=== PATIENT | female | born 1940 | race Caucasian/White ===

== ENCOUNTER 2019-07-28 06:56 | Day surgery (SDC) | payer MEDICARE, BC ==
[~2019-07-28 06:56] MED LIST: Dextrose 5%-0.45% NaCl 1,000 ML IV SCH; Midazolam 1 MG/ML 2 ML SDV ONE; fentaNYL 100 MCG/2 ML SDV ONE
[2019-07-28] MEDS ORDERED: fentaNYL 100 MCG/2 ML SDV IV ONE ×3 (06:57→08:09)
[2019-07-28] MEDS ORDERED: Midazolam 1 MG/ML 2 ML SDV IV ONE ×3 (06:57→08:11)
[2019-07-28] MEDS ORDERED: Sodium Chloride 0.9% 10 ML Syringe FLUSH PRN (08:00)
--- NOTE | 2019-07-28 10:14 | OR ---
DATE: 07/28/2019 PROCEDURES: Esophagogastroduodenoscopy and multiple pinch biopsies. INSTRUMENT USED: GIF-HQ190 Olympus video panendoscope. PREMEDICATIONS: No oral or topical anesthesia used. Fentanyl 100 mcg intravenous, Versed 1.5 mg intravenous, nasal O2 cannula. The procedure was done under pulse oximetry, BP recording, and customer assistance associate. INDICATION: The patient with persistent heartburn and chronic diarrhea, unexplained and not responsive to medical measures. Esophagogastroduodenoscopy is performed for detection of any active erosive lesions, Pereira esophagus and/or malignancy also under consideration, H pylori status to be determined, small bowel biopsies to be obtained for celiac disease, endoscopic hemostasis therapy if needed. PROCEDURE IN DETAIL: The scope was passed with ease. Adequate visualization of the esophagus was made from proximal to distal areas. No upper esophageal lesions identified. No distal esophageal stricture. No uphill or downhill esophageal varices. No Lucía-Camp tear. No evidence of erosive esophagitis by Clay criteria. No esophageal polyp or tumor mass identified. Z-line was seen around 39 cm distal to the oral verge, configuration consistent with grade 1 by ZAP classification. No esophageal polyp or tumor mass identified. No proximal gastric varices noted. Gastric fundus examination by retroflexion showed no polypoid lesions. No gastric ulcer, malignant mass, or vascular ectasia identified. Multiple pinch biopsies taken from the gastric antrum and proximal body and sent for PyloriTek test for H pylori and histopathology. Duodenal bulb showed no ulcer. Visualized second part of the duodenum was unremarkable. Multiple pinch biopsies, 4 in number, were taken from different areas of the second part of the duodenum, and tissues were also obtained from the duodenal bulb at 9 and 12 o'clock positions and sent for any histopathologic evidence of celiac disease. No bleeding was noted from any of the visualized areas at the completion of examination. Photographs were taken of the duodenal bulb, gastric antrum, fundus, and distal esophagus. IMPRESSION: Normal study. The patient tolerated the procedure well. [facility] /[id number]
--- NOTE | 2019-07-28 11:14 | LETTER ---
07/28/2019 Randi Granado NP [address] [address] RE: GRANT YARELY Palmer : 1940 Dear Ms. Granado: Ms. Yarely Maddox had esophagogastroduodenoscopy done this morning and she tolerated the procedure well. I herewith send a copy of the endoscopy note and photographs for your review. Thank you. Sincerely, [facility] /[id number]
== END 2019-07-28 10:20 | disposition home or self-care (01) ==
LOC: DL.ENDO 06:56
PROVIDERS: ATTEND Internal Medicine Gastroenterology
DX: R12 Heartburn (principal); K52.9 Noninfective gastroenteritis and colitis, unspecified; B96.81 Helicobacter pylori [H. pylori] as the cause of diseases classified elsewhere; I10 Essential (primary) hypertension; M19.90 Unspecified osteoarthritis, unspecified site; Z88.5 Allergy status to narcotic agent; Z88.1 Allergy status to other antibiotic agents; Z88.8 Allergy status to other drugs, medicaments and biological substances
CPT/HCPCS: 43239; 87077; J2250; J3010; J7042

== ENCOUNTER 2019-12-07 06:54 | Day surgery (SDC) | payer MEDICARE, BC ==
[~2019-12-07 06:54] MED LIST changes: +Sodium Chloride 0.9% 10 ML Syringe FLUSH PRN
[2019-12-07] MEDS ORDERED: Midazolam 1 MG/ML 2 ML SDV IV ONE ×7 (06:55→08:53)
[2019-12-07] MEDS ORDERED: fentaNYL 100 MCG/2 ML SDV IV ONE ×4 (06:55→08:55)
--- NOTE | 2019-12-07 15:31 | OR ---
DATE: 12/07/2019 PROCEDURES: Total colonoscopy and cold snare polypectomy. INSTRUMENT USED: PCF-H190DL Olympus video colonoscope. PREMEDICATIONS: Fentanyl 125 mcg intravenous, Versed 4 mg intravenous. Nasal O2 cannula. The procedure was done under pulse oximetry, BP recording, and satellite project site monitor. INDICATION: The patient with Hemoccult positive stools. Colonoscopic examination is done for detection of any polypoid lesions and removal, endoscopic hemostasis therapy if needed. DESCRIPTION OF PROCEDURE: Initial rectal exam was unremarkable. Rigid anoscopy was normal. The colonoscope was passed with ease. Numerous scattered diverticula were noted in the distal left colon along with significant deformity. The passage of the scope was technically difficult due to the presence of adhesions and numerous distal left colonic diverticula with deformity. In the proximal sigmoid colon, 5 mm sized benign-appearing polyp was noted, photograph was taken, cold snare polypectomy was done, the tissue was retrieved and sent for histopathology. The scope was passed up to the cecal area, photographs were taken. The examination was compromised due to the presence of large amount of fecal material, especially in the right colon that could not be aspirated clear. [place] scale 1 in the right colon, 2 in transverse and left colon, total score 5. No vascular ectasia. No large isolated ulcerations seen. No evidence of diffuse inflammatory bowel disease in the form of friability, contact bleeding, or ulcerations. Probing the proximal sides of folds and flexures using adequate distention and clearing of the stool material, withdrawal of the scope was made. Cecum to rectum time more than 6 minutes. No bleeding was noted from any of the visualized areas at the completion of examination. IMPRESSION: 1. Sigmoid colonic polyp. 2. Diverticulosis. The patient tolerated the procedure well. [facility] /[id number]
--- NOTE | 2019-12-08 08:03 | LETTER ---
12/07/2019 RE: GRANTINÉSJEFF M : 1940 Randi Granado NP [address] [id number] Dear Ms. Granado: Ms. Jeff Maddox had colonoscopic examination done this morning and she tolerated the procedure well. I herewith send a copy of the endoscopy note and photographs for your review. Thank you. Sincerely, [facility] /[id number]
== END 2019-12-07 11:07 | disposition home or self-care (01) ==
LOC: DL.ENDO 06:54
PROVIDERS: ATTEND Internal Medicine Gastroenterology
DX: D12.5 Benign neoplasm of sigmoid colon (principal); K57.30 Diverticulosis of large intestine without perforation or abscess without bleeding; M54.5 Low back pain; I10 Essential (primary) hypertension; K21.9 Gastro-esophageal reflux disease without esophagitis; F41.1 Generalized anxiety disorder; Z90.49 Acquired absence of other specified parts of digestive tract; Z98.890 Other specified postprocedural states; Z90.710 Acquired absence of both cervix and uterus; Z86.19 Personal history of other infectious and parasitic diseases
CPT/HCPCS: 45385; J2250; J3010; J7042

== ENCOUNTER 2020-06-29 07:16 | Day surgery (SDC) | payer MEDICARE, BC ==
[2020-06-29] MEDS ORDERED: Sodium Chloride 0.9% 10 ML Syringe IV ONE (07:17)
[2020-06-29] MEDS ORDERED: Dexamethasone 4 MG/ML SDV IV ONE (07:17)
[2020-06-29] MEDS ORDERED: Midazolam 1 MG/ML 2 ML SDV IV ONE (07:17)
[2020-06-29] MEDS ORDERED: Acetaminophen 325 MG Tab PO PRN (07:30)
[2020-06-29] MEDS ORDERED: Tropicamide 1% Ophth Soln 15 ML Bottle EYELF ONE (07:30)
[2020-06-29] MEDS ORDERED: Timolol Maleate 0.5% Ophth Soln 5 ML Bottle EYELF ONE (07:30)
[2020-06-29] MEDS ORDERED: Moxifloxacin 0.5% Ophth Soln 3 ML Bottle EYELF ONE (07:30)
[2020-06-29] MEDS ORDERED: Phenylephrine 10% Ophth Soln 5 ML Bot EYELF PRN (07:30)
[2020-06-29] MEDS ORDERED: Sodium Chloride 0.9% 10 ML Syringe FLUSH PRN (07:30)
[2020-06-29] MEDS ORDERED: Povidone-Iodine 5% Sterile Ophth Soln 30 ML Bottle EYELF ONE ×2 (07:30→08:53)
[2020-06-29] MEDS ORDERED: Proparacaine 0.5% Ophth Soln 15 ML Bottle EYELF ONE (07:30)
[2020-06-29] MEDS ORDERED: Phenylephrine 10% Ophth Soln 5 ML Bot EYELF ONE (07:30)
[2020-06-29] MEDS ORDERED: Ondansetron 4 MG/2 ML SDV IVPUSH PRN (07:30)
[2020-06-29] MEDS ORDERED: Cataract Ophth Solution EYELF ONE (07:30)
[2020-06-29] MEDS ORDERED: Tetracaine HCl/PF 0.5% 4 ML Bottle EYELF ONE (08:53)
[2020-06-29] MEDS ORDERED: Apraclonidine 0.5% Ophth Soln 5 ML Bot EYELF ONE (08:53)
[2020-06-29] MEDS ORDERED: Lidocaine 1% 30 ML SDV ONE (08:53)
[2020-06-29] MEDS ORDERED: Diclofenac Sodium 0.1% Ophth Soln 5 ML Bottle EYELF ONE (08:53)
[2020-06-29] MEDS ORDERED: Chondroitin Sulfate/Hyaluronate Sodium Ophth Inj 0.75 ML Syringe EYELF ONE (08:55)
[2020-06-29] MEDS ORDERED: Balanced Salt Solution Ophth Irrig 500 ML Bottle IOCULAR ONE (08:55)
[2020-06-29] MEDS ORDERED: Dexamethasone/Neomycin/Polymyxin B Ophth Oint 3.5 GM Tube EYELF ONE (08:55)
[2020-06-29] MEDS ORDERED: Vancomycin 500 MG SDV EYELF ONE (08:56)
[2020-06-29] MEDS ORDERED: Dexamethasone 4 MG/ML SDV IOCULAR ONE (08:57)
--- NOTE | 2020-06-29 15:01 | OR ---
DATE: 06/29/2020 PREOPERATIVE DIAGNOSIS: Visually significant mixed cataract, left eye. POSTOPERATIVE DIAGNOSIS: Visually significant mixed cataract, left eye. PROCEDURE: Extracapsular cataract extraction with intraocular lens implant, left eye. ANESTHESIA: Topical/local MAC. COMPLICATIONS: None. INDICATION: Ms. Maddox was seen in the clinic. She has complained of a progressive decrease in both distance and near vision ongoing over the last 6 months. She has difficulty seeing television, difficulty functioning, and glasses have made no improvement. She has difficulty seeing fine print, difficulty sewing. Examination reveals mixed cataract. Best spectacle corrected vision to the level of 20/30. Oncoming light reveals a visual acuity of 20 unable. I explained options, offered cataract surgery, and I explained risks including the potential for infection, retinal detachment, loss of vision, need for additional surgery, and risks associated with anesthesia. She saw her machine zipper trimmer and attempted to change glasses with no improvement. She has requested cataract surgery to improve vision and function. We discussed implant options and she has requested a toric implant. She understands that she may still require glasses for some activities. OPERATIVE DESCRIPTION: After informed consent was obtained and the risks, benefits, and alternatives were explained, the patient was brought to the operative suite and topical anesthesia was administered. The patient was then prepped and draped in the sterile fashion and attention was placed on the left eye. A sterile lid speculum was placed into the left eye to allow operative exposure. A full-thickness paracentesis was made in the temporal portion of the operative eye. Preservative-free lidocaine 0.1 mL was injected into the anterior chamber followed by viscoelastic. A full-thickness corneal incision was then made into the anterior chamber. A bent needle cystotome was used to create a small lor in the anterior capsule. The capsulorrhexis forceps was then used to create a 360-degree curvilinear capsulorrhexis. The nucleus was then removed using a phacoemulsification handpiece and the remaining cortical material was then removed with irrigation and aspiration handpiece. Following removal of the cortical material, the capsular bag was then inspected and noted to be free of any holes or tears. Viscoelastic was then injected into the capsular bag and the intraocular lens was inserted into the capsular bag. The implant was oriented to correspond with preoperative corneal hawthorne made with the patient in the upright position. The viscoelastic material was then removed from both the anterior and posterior chambers and from behind the IOL. The lens and capsular bag were then reinspected. The IOL was well centered and the capsular bag intact. The wound and paracentesis sites were inspected and hydrated with balanced saline solution. Both were found to be self-sealing. The intraocular pressure was assessed digitally and found to be within normal range. A good red reflex was noted at the completion of the procedure. No complications occurred during the operation. At the completion of the procedure, Maxitrol, Voltaren, and Iopidine drops were placed into the operative eye. A sterile eye shield was placed over the operative eye and the patient was transported to the postoperative recovery area having tolerated the procedure well. Postoperative instructions were given along with a postoperative appointment. The patient was advised to call with any questions or concerns. [facility] /[id number]
== END 2020-06-29 10:08 | disposition home or self-care (01) ==
LOC: DL.SDS 07:16
PROVIDERS: ATTEND Ophthalmology
DX: H26.8 Other specified cataract (principal); I10 Essential (primary) hypertension; M48.061 Spinal stenosis, lumbar region without neurogenic claudication; K21.9 Gastro-esophageal reflux disease without esophagitis; G89.29 Other chronic pain; Z98.890 Other specified postprocedural states; Z87.891 Personal history of nicotine dependence; Z79.899 Other long term (current) drug therapy; Z88.5 Allergy status to narcotic agent; Z88.1 Allergy status to other antibiotic agents; Z88.8 Allergy status to other drugs, medicaments and biological substances
CPT/HCPCS: 00142; 66984; A9270; J1100; J2001; J2250; J3370; V2787

== ENCOUNTER 2020-07-06 07:16 | Day surgery (SDC) | payer MEDICARE, BC ==
[2020-07-06] MEDS ORDERED: Midazolam 1 MG/ML 2 ML SDV IV ONE (07:17)
[2020-07-06] MEDS ORDERED: Dexamethasone 4 MG/ML SDV IV ONE (07:17)
[2020-07-06] MEDS ORDERED: Sodium Chloride 0.9% 10 ML Syringe IV ONE (07:17)
[2020-07-06] MEDS ORDERED: Timolol Maleate 0.5% Ophth Soln 5 ML Bottle EYERT ONE (07:30)
[2020-07-06] MEDS ORDERED: Tropicamide 1% Ophth Soln 15 ML Bottle EYERT ONE (07:30)
[2020-07-06] MEDS ORDERED: Phenylephrine 10% Ophth Soln 5 ML Bot EYERT ONE ×2 (07:30→08:44)
[2020-07-06] MEDS ORDERED: Acetaminophen 325 MG Tab PO PRN (07:30)
[2020-07-06] MEDS ORDERED: Cataract Ophth Solution EYERT ONE (07:30)
[2020-07-06] MEDS ORDERED: Proparacaine 0.5% Ophth Soln 15 ML Bottle EYERT ONE (07:30)
[2020-07-06] MEDS ORDERED: Sodium Chloride 0.9% 10 ML Syringe FLUSH PRN (07:30)
[2020-07-06] MEDS ORDERED: Phenylephrine 10% Ophth Soln 5 ML Bot EYERT PRN (07:30)
[2020-07-06] MEDS ORDERED: Moxifloxacin 0.5% Ophth Soln 3 ML Bottle EYERT ONE (07:30)
[2020-07-06] MEDS ORDERED: Povidone-Iodine 5% Sterile Ophth Soln 30 ML Bottle EYERT ONE ×2 (07:30→08:43)
[2020-07-06] MEDS ORDERED: Ondansetron 4 MG/2 ML SDV IVPUSH PRN (07:30)
[2020-07-06] MEDS ORDERED: Lidocaine 1% 30 ML SDV ONE (08:42)
[2020-07-06] MEDS ORDERED: Balanced Salt Solution Ophth Irrig 500 ML Bottle IOCULAR ONE (08:43)
[2020-07-06] MEDS ORDERED: Tetracaine HCl/PF 0.5% 4 ML Bottle EYERT ONE (08:43)
[2020-07-06] MEDS ORDERED: Diclofenac Sodium 0.1% Ophth Soln 5 ML Bottle EYERT ONE (08:43)
[2020-07-06] MEDS ORDERED: Apraclonidine 0.5% Ophth Soln 5 ML Bot EYERT ONE (08:43)
[2020-07-06] MEDS ORDERED: Vancomycin 500 MG SDV EYERT ONE (08:44)
[2020-07-06] MEDS ORDERED: Chondroitin Sulfate/Hyaluronate Sodium Ophth Inj 0.75 ML Syringe EYERT ONE (08:44)
[2020-07-06] MEDS ORDERED: Dexamethasone/Tobramycin 0.1-0.3% Ophth Oint 3.5 GM Tube EYERT ONE (08:51)
[2020-07-06] MEDS ORDERED: Dexamethasone 4 MG/ML SDV IOCULAR ONE (08:51)
--- NOTE | 2020-07-07 08:40 | OR ---
DATE: 07/06/2020 PREOPERATIVE DIAGNOSIS: Visually significant mixed cataract, right eye. POSTOPERATIVE DIAGNOSIS: Visually significant mixed cataract, right eye. PROCEDURE: Extracapsular cataract extraction with intraocular lens implant, right eye. ANESTHESIA: Topical/local MAC. COMPLICATIONS: None. INDICATION: Ms. Maddox was seen in the clinic. She is unhappy with her vision noticing a progressive business change manager the last 6 months. She has difficulty sewing, difficulty with near work, difficulty seeing fine print. She also has difficulty seeing television. Examination reveals visually significant mixed cataract. Oncoming light reveals visual acuity of 20/unable. I explained options, offered cataract surgery and I explained risks including, but not limited to infection, retinal detachment, loss of vision, need for additional surgery, and risks associated with anesthesia. We discussed implant options. She has requested a toric implant. She understands that she may still require glasses for some activities, especially near work. OPERATIVE DESCRIPTION: After informed consent was obtained and the risks, benefits, and alternatives were explained, the patient was brought to the operative suite and topical anesthesia was administered. The patient was then prepped and draped in the sterile fashion and attention was placed on the right eye. A sterile lid speculum was placed into the right eye to allow operative exposure. A full-thickness paracentesis was made in the temporal portion of the operative eye. Preservative-free lidocaine 0.1 mL was injected into the anterior chamber followed by viscoelastic. A full-thickness corneal incision was then made into the anterior chamber. A bent needle cystotome was used to create a small lor in the anterior capsule. The capsulorrhexis forceps was then used to create a 360-degree curvilinear capsulorrhexis. The nucleus was then removed using a phacoemulsification handpiece and the remaining cortical material was then removed with irrigation and aspiration handpiece. Following removal of the cortical material, the capsular bag was then inspected and noted to be free of any holes or tears. Viscoelastic was then injected into the capsular bag and the intraocular lens was inserted into the capsular bag. The implant was oriented to correspond with preoperative corneal hawthorne made with the patient in the upright position. The viscoelastic material was then removed from both the anterior and posterior chambers and from behind the IOL. The lens and capsular bag were then reinspected. The IOL was well centered and the capsular bag intact. The wound and paracentesis sites were inspected and hydrated with balanced saline solution. Both were found to be self-sealing. The intraocular pressure was assessed digitally and found to be within normal range. A good red reflex was noted at the completion of the procedure. No complications occurred during the operation. At the completion of the procedure, Maxitrol, Voltaren, and Iopidine drops were placed into the operative eye. A sterile eye shield was placed over the operative eye and the patient was transported to the postoperative recovery area having tolerated the procedure well. Postoperative instructions were given along with a postoperative appointment. The patient was advised to call with any questions or concerns. [facility] /[id number]
== END 2020-07-06 10:03 | disposition home or self-care (01) ==
LOC: DL.SDS 07:16
PROVIDERS: ATTEND Ophthalmology
DX: H26.8 Other specified cataract (principal); K21.9 Gastro-esophageal reflux disease without esophagitis; Z98.890 Other specified postprocedural states; Z87.891 Personal history of nicotine dependence; Z88.5 Allergy status to narcotic agent; Z88.8 Allergy status to other drugs, medicaments and biological substances
CPT/HCPCS: 00140; A9270-GY; J1100; J2001; J2250; J3370; V2787-GY

== ENCOUNTER 2024-07-06 13:04 | Emergency (ER) | payer MEDICARE ==
[2024-07-06] MEDS: Ibuprofen 400 MG Tab PO ONE (13:43)
== END 2024-07-06 13:53 | disposition home or self-care (01) ==
LOC: DL.ED 13:04
DX: M79.2 Neuralgia and neuritis, unspecified (principal); I10 Essential (primary) hypertension; K21.9 Gastro-esophageal reflux disease without esophagitis; Z90.49 Acquired absence of other specified parts of digestive tract; Z79.899 Other long term (current) drug therapy; Z88.6 Allergy status to analgesic agent; Z88.8 Allergy status to other drugs, medicaments and biological substances; Z88.1 Allergy status to other antibiotic agents; Z88.5 Allergy status to narcotic agent
CPT/HCPCS: 99283; A9270